=== PATIENT | male | born 1965 ===

== ENCOUNTER 2021-05-11 05:40 | Day surgery (SDC) | payer OTHER | END 2021-05-11 19:25 | disposition home or self-care (01) | LOC: CIR.AMB 05:40 | PROVIDERS: ATTEND Colon & Rectal Surgery | DX: K62.82 Dysplasia of anus (principal); K64.4 Residual hemorrhoidal skin tags; K64.8 Other hemorrhoids; Z20.822 Contact with and (suspected) exposure to COVID-19 ==